=== PATIENT | male | born 1975 | race Native Hawaiian/Other Pacific Islander ===

== ENCOUNTER 2022-06-15 03:24 | Emergency (ER) | payer OTHER ==
[~2022-06-15] VITALS: Ht 182.9 cm; Wt 120.2 kg
[2022-06-15 04:09] LABS: PLATELET COUNT 211 K/uL (142-355)
[2022-06-15 04:29] LABS: POTASSIUM 3.3 mmol/L (3.6-5.2)
[2022-06-15 04:55] VITALS: BP 142/79; TEMP 99.3
== END 2022-06-15 05:05 | disposition home or self-care (01) ==
LOC: ED 03:24
PROVIDERS: Hospitalist
DX: J06.9 Acute upper respiratory infection, unspecified (principal); R50.9 Fever, unspecified; Z20.822 Contact with and (suspected) exposure to COVID-19
CPT/HCPCS: 36415; 80048; 85027; 87502; 87635; 87651; 96360; 99284; U0003

== ENCOUNTER 2022-09-21 10:03 | Emergency (ER) | payer OTHER ==
[~2022-09-21] VITALS: Ht 182.9 cm; Wt 122.5 kg
[2022-09-21 10:12] VITALS: TEMP 98.5
[2022-09-21 10:53] LABS: PLATELET COUNT 230 K/uL (142-355)
[2022-09-21 12:27] VITALS: BP 148/69
== END 2022-09-21 12:27 | disposition home or self-care (01) ==
LOC: ED 10:03
PROVIDERS: Emergency Medicine Emergency Medical Services
DX: K80.50 Calculus of bile duct without cholangitis or cholecystitis without obstruction (principal)
CPT/HCPCS: 36415; 80053; 82150; 83690; 84484; 85027; 93005; 96374; 99284

== ENCOUNTER 2022-11-09 08:05 | Outpatient (CLI) | payer OTHER | END 2022-11-09 18:58 | disposition home or self-care (01) | LOC: NM 08:05 | PROVIDERS: ATTEND Nurse Practitioner Family | DX: R10.11 Right upper quadrant pain (principal) | CPT/HCPCS: A9537 ==